=== PATIENT | female | born 1955 | race Caucasian/White ===

== ENCOUNTER 2023-11-19 08:17 | Inpatient (IN) | payer MEDICARE ==
[2023-11-18 12:10] LABS: BASOPHILS % (AUTO) 0.6 % (0-1); EOSINOPHILS # (AUTO) 0.3 X10'3 (0-0.9); EOSINOPHILS % (AUTO) 4.8 % (0-6); LYMPHOCYTES # (AUTO) 1.1 X10'3 (1.1-4.8); LYMPHOCYTES % (AUTO) 19.6 % (21-51); MEAN CORPUSCULAR HGB CONC 33.5 g/dL (33.0-36.5); MEAN CORPUSCULAR VOLUME 89.6 FL (78-98); MEAN PLATELET VOLUME 8.6 FL (7.4-10.4); MONOCYTES # (AUTO) 0.5 X10'3 (0-0.9); MONOCYTES % (AUTO) 9.1 % (2-12); NEUTROPHILS # (AUTO) 3.7 X10'3 (1.8-7.7); NEUTROPHILS % (AUTO) 65.9 % (42-75); PRE OP HEMOGLOBIN 12.7 g/dL (12.0-16.0); PRE OP PLATELET COUNT 208 X10'3 (140-440); PRE OP WHITE BLOOD COUNT 5.6 10'3 (4.8-10.8); RED BLOOD COUNT 4.24 X10'6 (4.20-5.60); RED CELL DISTRIBUTION WIDTH 12.7 % (11.5-14.5)
[2023-11-18 12:12] LABS: PRE OP INR 0.9 INR; PRE OP PROTIME 10.2 SECONDS (9.0-12.0)
[2023-11-18 12:18] LABS: ALBUMIN 3.9 G/DL (3.4-5.0); ALBUMIN/GLOBULIN RATIO 1.1 (1.1-1.5); ALKALINE PHOSPHATASE 116 IU/L (46-116); BLOOD UREA NITROGEN 20 MG/DL (7-18); BUN/CREATININE RATIO 33.3 (10.0-20.0); CALCIUM 10.1 MG/DL (8.5-10.1); CHLORIDE 104 MMOL/L (99-107); PRE OP ALT 24 U/L (30-65); PRE OP ANION GAP 6 (8-16); PRE OP AST 16 U/L (10-37); PRE OP BILIRUB, TOTAL 0.2 MG/DL (0.0-1.0); PRE OP GLUCOSE 81 MG/DL (70-104); PRE OP POTASSIUM 4.7 MMOL/L (3.4-5.1); PRE OP SODIUM 137 MMOL/L (135-145); TOTAL CARBON DIOXIDE 27.5 MMOL/L (24-32); TOTAL PROTEIN 7.5 G/DL (6.4-8.2); eGFR > 90 ML/MIN
[~2023-11-19] VITALS: Ht 147.3 cm; Wt 61.6 kg
[2023-11-19] VITALS (23 sets, daily range): BP systolic 102–152; BP diastolic 45–94; PULSE 62–95; RESP 14–16; TEMP 96.7–98.5; O2SAT 89–97
[2023-11-19] MEDS: cefazolin 2gm/D5W 100mL 100 ML IV ONE (05:30)
[~2023-11-19 08:17] MED LIST: HYDR-3973 PO; LISI20TA28 PO; PANT40TA54 PO; RIZA10TA98 PO; VENL75CA61 PO; VITAMIN B-12; VITAMIN C; VITAMIN D3
[2023-11-19] MEDS: ringers solution, lacted 1,000 ML IV SCH ×2 (09:02→19:27)
[2023-11-19] MEDS: famotidine 20mg tablet PO ONE (09:02)
[2023-11-19] MEDS ORDERED: ROPIVAcaine 0.5% (5mg/ml) 30ml vial ONE ×2 (12:01)
[2023-11-19] MEDS ORDERED: dexamethasone sod phosphate 4mg/ml inj. ONE (12:02)
[2023-11-19] MEDS ORDERED: propofol inj 20 ML IV ONE (12:02)
[2023-11-19] MEDS ORDERED: LIDOcaine 2% (20mg/ml) 5ml vial ONE (12:02)
[2023-11-19] MEDS ORDERED: fentaNYL/PF 50MCG/1 ML 2ML syringe ONE (12:03)
[2023-11-19] MEDS ORDERED: ondansetron/PF 4mg/2ml inj ONE (12:03)
[2023-11-19] MEDS ORDERED: sevoflurane 250ml liquid IH ONE (12:28)
[2023-11-19] MEDS: methylene blue (5mg/ml) 50mg/10ml ampul IV ONE (13:14)
[2023-11-19] MEDS: BUPIVAcaine 2.5mg/ml inj 50ml vial (contains preservative) ONE (13:15)
[2023-11-19] MEDS: BUPIVACAINE liposomal/PF 13.3 MG/ML vial IM ONE (13:15)
[2023-11-19] MEDS ORDERED: morphine 4 MG/ML inj SYRINge IV PRN (15:10)
[2023-11-19] MEDS ORDERED: labetalol 20mg/4ml (5mg/ml) syringe IV PRN (15:10)
[2023-11-19] MEDS ORDERED: ringers solution, lacted 1,000 ML IV SCH (15:10)
[2023-11-19] MEDS ORDERED: morphine 2 MG/ML inj. syringe IV PRN (15:10)
[2023-11-19] MEDS ORDERED: proCHLORperazine 10 MG/2 ml inj IV PRN (15:10)
[2023-11-19] MEDS ORDERED: meperidine/PF 25mg/ml syringe IV PRN ×2 (15:10)
[2023-11-19] MEDS ORDERED: ondansetron/PF 4mg/2ml inj IV PRN (15:10)
[2023-11-19] MEDS ORDERED: enalaprilat dihydrate 2.5mg/2ml vial IV PRN (15:10)
[2023-11-19] MEDS ORDERED: CEFAZOLIN 2 GM injection IM ONE (15:15)
[2023-11-19] MEDS: meperidine/PF 25mg/ml syringe IV PRN (15:25)
[2023-11-19] MEDS: acetaminophen 1,000mg/100ml IV 100 ML IV ONE (15:25)
[2023-11-19] MEDS: morphine 2 MG/ML inj. syringe IV PRN (19:27)
[2023-11-19] MEDS: cefazolin 2gm/D5W 100mL 100 ML IV SCH (20:10)
[2023-11-20] VITALS (24 sets, daily range): BP systolic 111–180; BP diastolic 55–113; PULSE 69–120; RESP 12–19; TEMP 97–99.7; O2SAT 91–100
[2023-11-20] MEDS: lisinopril 20mg tablet PO SCH (07:20)
[2023-11-20] MEDS ORDERED: HYDROcodone/acetaminophen 5mg/325mg tablet PO PRN ×2 (07:30→15:55)
[2023-11-20] MEDS: pantoprazole 40mg Tablet.DR PO SCH (07:48)
[2023-11-20] MEDS: venlafaxine XR 75mg capsule (Q24H) PO SCH (07:48)
[2023-11-20] MEDS: RIZATRIPTAN BENZOATE 10 MG PO PRN (07:49)
[2023-11-20] MEDS: HYDROcodone/acetaminophen 10/325mg tab PO PRN (07:49)
[2023-11-20 09:24] LABS: BASOPHILS # (AUTO) 0.1 X10'3 (0-0.2); LYMPHOCYTES # (AUTO) 0.9 X10'3 (1.1-4.8); MEAN PLATELET VOLUME 9.2 FL (7.4-10.4); RED CELL DISTRIBUTION WIDTH 12.4 % (11.5-14.5)
[2023-11-20 09:25] LABS: BASOPHILS % (AUTO) 0.4 % (0-1); EOSINOPHILS % (AUTO) 0.3 % (0-6); HEMATOCRIT 28.1 % (35.0-45.0); HEMOGLOBIN 9.5 g/dl (12.0-16.0); MEAN CORPUSCULAR HEMOGLOBIN 29.7 PG (27.0-31.0); MEAN CORPUSCULAR HGB CONC 33.6 g/dL (33.0-36.5); MEAN CORPUSCULAR VOLUME 88.4 FL (78-98); MONOCYTES # (AUTO) 0.9 X10'3 (0-0.9); MONOCYTES % (AUTO) 6.1 % (2-12); NEUTROPHILS # (AUTO) 12.7 X10'3 (1.8-7.7); NEUTROPHILS % (AUTO) 87.2 % (42-75); PLATELET COUNT 210 X10'3 (140-440); RED BLOOD COUNT 3.18 X10'6 (4.20-5.60); WHITE BLOOD COUNT 14.6 X10'3 (4.5-11.0)
[2023-11-20] MEDS: metoclopramide 5 mg/ml inj IV ONE (10:34)
[2023-11-20] MEDS ORDERED: fentaNYL/PF 50MCG/1 ML 2ML syringe ONE (13:18)
[2023-11-20] MEDS ORDERED: rocuronium 10mg/ml inj IV ONE (13:19)
[2023-11-20] MEDS ORDERED: dexamethasone sod phosphate 4mg/ml inj. ONE (13:19)
[2023-11-20] MEDS ORDERED: propofol inj 20 ML IV ONE (13:19)
[2023-11-20] MEDS ORDERED: ondansetron/PF 4mg/2ml inj ONE (13:20)
[2023-11-20] MEDS ORDERED: sevoflurane 250ml liquid IH ONE (13:30)
[2023-11-20] MEDS: BUPIVACAINE liposomal/PF 13.3 MG/ML vial IM ONE (14:30)
[2023-11-20] MEDS: LIDOcaine 1% (10mg/ml)w/preservative inj. 20ml MDV ONE (14:30)
[2023-11-20] MEDS: BUPIVAcaine/PF 2.5mg/ml (0.25%) 10ml vial ONE (14:30)
[2023-11-20] MEDS ORDERED: neostigmine methylsulfate 1 MG/ML 10ml vial ONE (15:06)
[2023-11-20] MEDS ORDERED: glycopyrrolate 0.2mg/ml inj ONE (15:06)
[2023-11-20] MEDS: ringers solution, lacted 1,000 ML IV SCH (15:25)
[2023-11-20] MEDS ORDERED: enalaprilat dihydrate 2.5mg/2ml vial IV PRN (15:25)
[2023-11-20] MEDS ORDERED: proCHLORperazine 10 MG/2 ml inj IV PRN (15:25)
[2023-11-20] MEDS ORDERED: morphine 2 MG/ML inj. syringe IV PRN ×2 (15:25→16:00)
[2023-11-20] MEDS ORDERED: ondansetron/PF 4mg/2ml inj IV PRN (15:25)
[2023-11-20] MEDS ORDERED: labetalol 20mg/4ml (5mg/ml) syringe IV PRN (15:25)
[2023-11-20] MEDS ORDERED: meperidine/PF 25mg/ml syringe IV PRN ×3 (15:25)
[2023-11-20] MEDS: morphine 4 MG/ML inj SYRINge IV PRN (15:34)
[2023-11-20] MEDS ORDERED: potassium 20mEq/D5LR 1,000 ML IV SCH (15:55)
[2023-11-20] MEDS: Melatonin 3mg tablet PO SCH (21:20)
[2023-11-21 02:23] VITALS: BP 142/65; PULSE 99; RESP 16; TEMP 97.6; O2SAT 95
[2023-11-21 06:00] VITALS: BP 151/75; PULSE 91; RESP 16; TEMP 98.6; O2SAT 95
[2023-11-21 06:38] LABS: BASOPHILS % (AUTO) 0.1 % (0-1); EOSINOPHILS % (AUTO) 0.1 % (0-6); HEMATOCRIT 23.1 % (35.0-45.0); LYMPHOCYTES % (AUTO) 14.7 % (21-51); MEAN CORPUSCULAR HEMOGLOBIN 30.8 PG (27.0-31.0); MEAN CORPUSCULAR HGB CONC 34.5 g/dL (33.0-36.5); MEAN CORPUSCULAR VOLUME 89.3 FL (78-98); MEAN PLATELET VOLUME 8.6 FL (7.4-10.4); MONOCYTES # (AUTO) 0.7 X10'3 (0-0.9); MONOCYTES % (AUTO) 9.9 % (2-12); NEUTROPHILS % (AUTO) 75.2 % (42-75); PLATELET COUNT 157 X10'3 (140-440); RED BLOOD COUNT 2.59 X10'6 (4.20-5.60); RED CELL DISTRIBUTION WIDTH 12.6 % (11.5-14.5); WHITE BLOOD COUNT 6.6 X10'3 (4.5-11.0)
[2023-11-21 07:15] VITALS: BP 152/66; PULSE 68; RESP 16
[2023-11-21 07:38] VITALS: BP_SYST 152; PULSE 68
[2023-11-21 09:30] VITALS: RESP 19; O2SAT 94
[2023-11-21 13:00] VITALS: RESP 16
[2023-11-21 13:15] LABS: HEMATOCRIT 23.2 % (35.0-45.0); HEMOGLOBIN 7.8 g/dl (12.0-16.0); MEAN CORPUSCULAR HEMOGLOBIN 30.5 PG (27.0-31.0); MEAN CORPUSCULAR HGB CONC 33.8 g/dL (33.0-36.5); MEAN CORPUSCULAR VOLUME 90.1 FL (78-98); MEAN PLATELET VOLUME 8.8 FL (7.4-10.4); PLATELET COUNT 162 X10'3 (140-440); RED BLOOD COUNT 2.57 X10'6 (4.20-5.60); RED CELL DISTRIBUTION WIDTH 12.9 % (11.5-14.5); WHITE BLOOD COUNT 6.4 X10'3 (4.5-11.0)
== END 2023-11-21 14:00 | disposition home or self-care (01) | DRG 909 ==
LOC: PAS 08:17 → PAS IN 15:25 → SUR 3N 15:50 → OBSVTOIN 11-20 10:00
PROVIDERS: ADMIT Surgery; ATTEND Surgery
PROC: 07B50ZX Excision of Right Axillary Lymphatic, Open Approach, Diagnostic (ICD-10-PCS; 2023-11-19)
PROC: 0HBV0ZZ Excision of Bilateral Breast, Open Approach (ICD-10-PCS; 2023-11-19)
PROC: 0HRV077 Replacement of Bilateral Breast using Deep Inferior Epigastric Artery Perforator Flap, Open Approach (ICD-10-PCS; principal; 2023-11-19 12:28)
PROC: 05C70ZZ Extirpation of Matter from Right Axillary Vein, Open Approach (ICD-10-PCS; 2023-11-20)
DX: M96.841 Postprocedural hematoma of a musculoskeletal structure following other procedure (principal); C50.111 Malignant neoplasm of central portion of right female breast; I10 Essential (primary) hypertension; G43.909 Migraine, unspecified, not intractable, without status migrainosus
CPT/HCPCS: 36415; 80053; 82948; 85025; 85027; 85610; 85730; 88307; 88342; 93005; A4215; A4615; A4618; A6213; A6253; A6258; A6449; A7000; C9250; C9290; G0378; J0131; J0690; J1100; J2175; J2270; J2405; J2704; J2710; J2765; J2795; J3010; J3490; J7120; Q9968